=== PATIENT | male | born 1980 | race Two or more races ===

== ENCOUNTER 2016-08-30 20:36 | Emergency (ER) | payer OTHER ==
[2016-08-30 20:50] VITALS: BP 108/63; PULSE 63; RESP 18; TEMP 98.1; O2SAT 98
--- NOTE | 2016-08-30 21:31 | ED PDOC ---
HPI: Eye Injury/Pain Time Seen by Provider: 08/30/16 20:53 Chief Complaint (Nursing): Eye Problem Chief Complaint (Provider): Eye Problem History Per: Patient History/Exam Limitations: no limitations Onset/Duration Of Symptoms: Hrs Current Symptoms Are (Timing): Still Present Injury To Eye?: No Severity: Mild Quality: denies: "Pain" Associated Symptoms: Decreased Vision, Swelling. denies: Itching, Discharge From Eye Additional Complaint(s): 35 y/o male patient presenting to the ED with eye irritation. PT states that came to the ED after walking home from the office and he felt his left eye swelling. He denies pain but states he has blurry vision, watery eyes and swelling. No FB sensation. PT denies any past medical conditions and no allergies to medications. Past Medical History Reviewed: Historical Data, Nursing Documentation, Vital Signs Vital Signs: Last Vital Signs Temp 98.1 F 08/30/16 20:47 Pulse 63 08/30/16 20:47 Resp 18 08/30/16 20:47 BP 108/63 08/30/16 20:47 Pulse Ox 98 08/30/16 20:47 - Medical History PMH: No Chronic Diseases - Surgical History Surgical History: No Surg Hx - Family History Family History: States: Unknown Family Hx - Home Medications Home Medications: Ambulatory Orders Medication Instructions Recorded Tobramycin/Dexamethasone [Tobradex 3.5 gm OP BID #1 oint...g. 08/30/16 Eye Ointment] - Allergies Allergies/Adverse Reactions: Allergies Allergy/AdvReac Type Severity Reaction Status Date / Time No Known Allergies Allergy Verified 08/30/16 20:46 Review of Systems ROS Statement: Except As Marked, All Systems Reviewed And Found Negative Constitutional: Negative for: Fever Eyes: Positive for: Vision Change ((+)Blurry Vision Left Eye), Conjunctivae Inflammation, Redness Physical Exam - Reviewed Nursing Documentation Reviewed: Yes Vital Signs Reviewed: Yes - Physical Exam Appears: Positive for: Non-toxic, No Acute Distress Skin: Positive for: Normal Color, Warm Eye Exam: Positive for: EOMI, PERRL, Conjunctival injection, Other (Lower lid edema) Neurologic/Psych: Positive for: Alert, Oriented. Negative for: Motor/Sensory Deficits - ECG O2 Sat by Pulse Oximetry: 98 (RA) Pulse Ox Interpretation: Normal Medical Decision Making Medical Decision Making: Time: 2052 Initial impression: Corneal abrasion Positive Uptake of Stain at 6 O'clock Pt educated on results and demonstrated full understanding. Advised follow up with [facility] Initial plan: Scribe Attestation: Documented by Gisselle Rich acting as a scribe for CARYN Busch MD Scribe Attestation: All medical record entries made by the Scribe were at my direction and personally dictated by me. I have reviewed the chart and agree that the record accurately reflects my personal performance of the history, physical exam, medical decision making, and the department course for this patient. I have also personally directed, reviewed, and agree with the discharge instructions and disposition. Disposition - Clinical Impression Clinical Impression: Corneal abrasion - Patient ED Disposition Is Patient to be Admitted: No - Disposition Disposition: Routine/Home Disposition Time: 21:43 Condition: STABLE Prescriptions: Tobramycin/Dexamethasone [Tobradex Eye Ointment] 3.5 gm OP BID #1 oint...g. Instructions: Corneal Abrasion (ED) Forms: [employer] (Hungarian) - POA Present On Arrival: None
== END 2016-08-30 21:45 | disposition home or self-care (01) ==
LOC: H.ER 20:36
DX: S05.02XA Injury of conjunctiva and corneal abrasion without foreign body, left eye, initial encounter (principal); Y92.89 Other specified places as the place of occurrence of the external cause